=== PATIENT | female | born 1990 | race Caucasian/White ===

== ENCOUNTER 2016-05-27 08:18 | Emergency (ER) | payer SELFPAY ==
[2016-05-27] MEDS ORDERED: CYCLOBENZAPRINE HCL 10 MG TABLET PO ONE (09:20)
[2016-05-27] MEDS ORDERED: KETOROLAC TROMETHAMINE 60 MG/2 ML SDV IM ONE (09:20)
--- NOTE | 2016-05-27 09:24 | ER Document Report ---
HPI - HPI Patient complains to provider of: back pain Pain Level: 3 Context: Patient is a 26-year-old female who presents emergency Department complaining of low back pain and left leg numbness. Patient has a chronic history of low back pain previously treated with a L4-L5 discectomy. Patient states that she usually has back pain that she can manage at home with Motrin. Patient states last night she was working a 12 hour shift at a [employer] center and afterwards she had back pain. States her pain is intermittent with a constant dull ache in her left lower back with radiating pain down into the back of her leg. She denies any injury. Denies any saddle anesthesia, urinary incontinence, stool incontinence Past medical history significant for chronic back pain Does not have a primary care provider Social history 1-[id number], social alcohol use, denies any drug use. Has Flexeril and Motrin at home - CONSTITUTIONAL Constitutional: DENIES: Fever, Chills - EENT EENT: DENIES: Sore Throat, Ear Pain, Nasal Drainage-Clear, Nasal Drainage- Purulent, Congestion, Eye problems - NEURO Neurology: DENIES: Headache, Weakness, Vision blurred, Dizzinesss / Vertigo - CARDIOVASCULAR Cardiovascular: DENIES: Chest pain - RESPIRATORY Respiratory: DENIES: Trouble Breathing, Coughing - GASTROINTESTINAL Gastrointestinal: DENIES: Abdominal Pain, Nausea, Patient vomiting, Diarrhea, Constipation, Black / Bloody Stools - URINARY Urinary: DENIES: Dysuria, Urgency, Frequency - REPRODUCTIVE LMP: 05/20/16 Reproductive: DENIES: :, Postmenopausal, Abnormal bleeding / discharge - MUSCULOSKELETAL Musculoskeletal: REPORTS: Extremity pain - left leg numbness, Back Pain. DENIES : Neck Pain, Swelling - DERM Skin Color: Normal, [place] Skin Problems: None Past Medical History - General Information source: Patient Last Menstrual Period: 05/20/16 - Social History Smoking Status: Current Every Day Smoker Cigarette use (# per day): Yes - 1/2 pk Chew tobacco use (# tins/day): Yes Smoking Education Provided: Yes - Smoking cessation education-4 minutes Frequency of alcohol use: None Drug Abuse: None Family History: Arthritis, CVA, DM, Hyperlipidemia, Hypertension, Malignancy Patient has suicidal ideation: No Patient has homicidal ideation: No Renal/ Medical History: Reports: Hx Ovarian Cysts. Denies: Hx Peritoneal Dialysis Musculoskeltal Medical History: Reports Hx Arthritis, Reports Hx Musculoskeletal Deformity, Reports Hx Musculoskeletal Trauma Past Surgical History: Reports: Hx Orthopedic Surgery - back L4& L5 - Immunizations Immunizations up to date: Yes Hx Diphtheria, Pertussis, Tetanus Vaccination: Yes Vertical Provider Document - CONSTITUTIONAL Agree With Documented VS: Yes Exam Limitations: No Limitations General Appearance: WD/WN, Mild Distress - INFECTION CONTROL TRAVEL OUTSIDE OF THE [place] IN LAST 30 DAYS: No - HEENT HEENT: Atraumatic, Normocephalic - NECK Neck: Normal Inspection, Other - nontender to palpation, Full ROM - RESPIRATORY Respiratory: Breath Sounds Normal, No Respiratory Distress, Chest Non-Tender O2 Sat by Pulse Oximetry: 96 - CARDIOVASCULAR Cardiovascular: Regular Rate, Regular Rhythm, No Murmur Pulses: Normal: Radial, Dorsalis pedis - BACK Back: Normal Inspection - with a 2-3 cm vertical incision consistent with surgical history Notes: tenderness to palpation of the left lumbar paraspinous muscles that are tense to palp - MUSCULOSKELETAL/EXTREMETIES Musculoskeletal/Extremeties: MAEW - but guarding of left LE, FROM, Non-Tender, No Edema. negative: Eccymosis - NEURO Level of Consciousness: Awake, Alert, Appropriate Motor/Sensory: No Motor Deficit, No Sensory Deficit - DERM Integumentary: Warm, Dry, No Rash Course - Re-evaluation Re-evalutation: 05/27/16 10:49 Patient is a 26 old female who is hemodynamically stable, no acute distress, afebrile who is complaining of a flareup of her chronic back pain. Patient was given dose of Flexeril and Toradol to which she stayed improved her symptoms and she now feels that she is comfortable walking. Patient will be discharged home with by mouth Motrin and Flexeril can follow-up with her neurosurgeon. - Vital Signs Vital signs: Temp Pulse Resp BP Pulse Ox 98.4 F 77 16 115/62 96 05/27/16 08:38 05/27/16 08:38 05/27/16 08:38 05/27/16 08:38 05/27/16 08:38 Discharge - Discharge Clinical Impression: Encounter for smoking cessation counseling Back pain Qualifiers: Back pain location: low back pain Chronicity: chronic Back pain laterality: left Sciatica presence: with sciatica Sciatica laterality: sciatica of left side Qualified Code(s): M54.42 - Lumbago with sciatica, left side Condition: Good Disposition: HOME, SELF-CARE Instructions: Ice Packs ([facility]), Low Back Pain ([facility]), Muscle Strain ([facility]), Pain Medication Injection ([facility]), Warm Packs ([facility]), Stretching Exercises for the Back ([facility]) Prescriptions: Cyclobenzaprine HCl [Flexeril 10 mg Tablet] 10 mg PO TIDP PRN #15 tab PRN Reason: Ibuprofen [Motrin 800 mg Tablet] 800 mg PO Q8H PRN #30 tab PRN Reason: Forms: Return to School, Return to Work, Smoking Cessation Education
[2016-05-27 11:05] VITALS: BP 109/57
== END 2016-05-27 10:59 | disposition home or self-care (01) ==
LOC: ER 08:18
DX: M54.42 Lumbago with sciatica, left side (principal); F17.210 Nicotine dependence, cigarettes, uncomplicated
CPT/HCPCS: 99283; 96372; J1885

== ENCOUNTER 2016-06-30 11:48 | Emergency (ER) | payer SELFPAY ==
--- NOTE | 2016-06-30 12:15 | ER Document Report ---
ED Medical Screen (RME) - General Stated Complaint: POSSIBLE PANIC ATTACK Notes: 26 yo female c/o possible panic attack. reports that while at work left arm "got stuck", left facial twitching. pt began to hyperventilate so work called 911. presentlyu pt in NAD. VSS. left shoulder soreness. admits to alot of personal stress TRAVEL OUTSIDE OF THE [place] IN LAST 30 DAYS: No - Related Data Allergies/Adverse Reactions: No Known Allergies Allergy (Verified 06/30/16 12:12) Past Medical History Renal/ Medical History: Reports: Hx Ovarian Cysts. Denies: Hx Peritoneal Dialysis Musculoskeltal Medical History: Reports Hx Arthritis, Reports Hx Musculoskeletal Deformity, Reports Hx Musculoskeletal Trauma Past Surgical History: Reports: Hx Orthopedic Surgery - back L4& L5 - Immunizations Immunizations up to date: Yes Hx Diphtheria, Pertussis, Tetanus Vaccination: Yes
--- NOTE | 2016-06-30 15:57 | ER Document Report ---
ED Psych Disorder / Suicide - General Mode of Arrival: Ambulatory Information source: Patient TRAVEL OUTSIDE OF THE [place] IN LAST 30 DAYS: No - HPI Patient complains to provider of: Other - "panic attack" Onset: This morning Associated symptoms: Other - see above - General Chief Complaint: Anxiety Stated Complaint: POSSIBLE PANIC ATTACK Notes: 26 year old female presents to the ED via EMS complaining of having left sided face tightening, tingling to the bilateral finger tips, lips, and bilateral feet. Patient was told by a talent associate that she was having a panic attack. Patient additionally states that she noticed her legs shaking, difficulty moving her right hand, and her co-workers noted that she had purple lips. Patient reports feeling like if she is "going to ." Patient reports that she has "a lot of stuff going on" and that she has had panic attack-like symptoms before but never like this. She reports that she has felt her heart "drop" in her chest, but never the symptoms that she is reporting today. Patient does not have a primary care provider. Patient denies being on any medication for panic attacks. (DONNA ROTHMAN) - Related Data Allergies/Adverse Reactions: No Known Allergies Allergy (Verified 06/30/16 12:12) Home Medications: Current Home Medications Cyclobenzaprine HCl [Flexeril 10 mg Tablet] 10 mg PO TIDP PRN 06/30/16 [History] Past Medical History - General Information source: Patient - Social History Smoking Status: Current Every Day Smoker Chew tobacco use (# tins/day): No Frequency of alcohol use: None Drug Abuse: None Family History: Arthritis, CVA, DM, Hyperlipidemia, Hypertension, Malignancy Patient has suicidal ideation: No Patient has homicidal ideation: No Renal/ Medical History: Reports: Hx Ovarian Cysts. Denies: Hx Peritoneal Dialysis Musculoskeltal Medical History: Reports Hx Arthritis, Reports Hx Musculoskeletal Deformity, Reports Hx Musculoskeletal Trauma Past Surgical History: Reports: Hx Orthopedic Surgery - back L4& L5 - Immunizations Immunizations up to date: Yes Hx Diphtheria, Pertussis, Tetanus Vaccination: Yes Review of Systems - Review of Systems Constitutional: No symptoms reported EENT: See HPI, Other - "purple lips" Cardiovascular: No symptoms reported Respiratory: No symptoms reported Gastrointestinal: No symptoms reported Genitourinary: No symptoms reported Female Genitourinary: No symptoms reported Musculoskeletal: See HPI, Other - difficulty moving right arm Skin: No symptoms reported Hematologic/Lymphatic: No symptoms reported Neurological/Psychological: See HPI, Anxiety, Tingling - bilateral fingertips, feet, and lips -: Yes All other systems reviewed and negative Physical Exam - Vital signs Interpretation: Normal - General General appearance: Alert In distress: None - HEENT Head: Normocephalic, Atraumatic Eyes: Normal Extraocular movements intact: Yes Pupils: PERRL - Respiratory Respiratory status: No respiratory distress Breath sounds: Normal - Cardiovascular Rhythm: Regular Heart sounds: Normal auscultation - Abdominal Inspection: Normal - Back Back: Normal - Extremities General upper extremity: Normal inspection, Normal ROM General lower extremity: Normal inspection, Normal ROM - Neurological Neuro grossly intact: Yes Cognition: Normal Orientation: AAOx4 Jose Coma Scale Eye Opening: Spontaneous Jose Coma Scale Verbal: Oriented [place] Coma Scale Motor: Obeys Commands [place] Coma Scale Total: 15 Speech: Normal - Psychological Associated symptoms: Normal affect, Normal mood - Skin Skin Temperature: Warm Skin Moisture: Dry Skin Color: Normal - Vital signs Vitals: Pulse Resp BP Pulse Ox 74 14 110/60 100 06/30/16 16:15 06/30/16 16:15 06/30/16 16:15 06/30/16 16:15 Pulse Resp BP Pulse Ox 74 14 110/60 100 06/30/16 16:15 06/30/16 16:15 06/30/16 16:15 06/30/16 16:15 (DONNA ROTHMAN) Course - Re-evaluation Re-evalutation: 06/30/16 15:58 I personally performed the services described in the documentation, reviewed and edited the documentation which was dictated to my scribe in my presence, and it accurately records my words and actions. Patient presents the emergency department. She was at work became upset started breathing fast gut tingling around her lips and her finger spelled overwhelmed showed and crying uncontrollably. She says happened to her couple times in the past she's never sought treatment for. She is not suicidal homicidal she is completely calm on examination with no current complaints. Says been a lot of things with her life recently that she's been having trouble prioritizing. She has any headache blurred vision double vision chest pain shortness breath no strokelike symptoms. A long discussion about prioritizing unloading all the pressure and focusing on trying to achieve 1 stressor at a time and prioritize which stressors the most important to her. She is very comfortable with this conversation does not want to start on medication she doesn't have to give her the clinic for follow-up and discuss reasons for ED return sooner (JEREMIAS JOHN) - Vital Signs Vital signs: Temp Pulse Resp BP Pulse Ox 74 14 110/60 100 06/30/16 16:15 06/30/16 16:15 06/30/16 16:15 06/30/16 16:15 Discharge - Discharge Clinical Impression: Anxiety Condition: Stable Disposition: HOME, SELF-CARE Instructions: Anxiety ([facility]) Additional Instructions: Anxiety The physician feels that some of your health problems are being caused by anxiety. Anxiety affects your health in many ways. Anxiety alone can cause palpitations, sweats, chest pains, abdominal pains, shortness of breath, and headaches. It contributes to ulcer disease, high blood pressure, irritable bowel syndrome, and has been shown to cause flare-ups of many other diseases. Anxiety is not a simple disorder to treat. If the anxiety is due to recent life stresses, you may simply need time to "work through" the changes. If the anxiety is due to an underlying unhappiness with yourself or due to psychiatric disturbance, professional help will be needed. Your physician can refer you for further help if needed. Anti-anxiety medication is occasionally given if the stress is acute or if you are having trouble sleeping. Chronic or frequent use of these medications is not a good idea because the body becomes reliant on it, preventing you from dealing with life's normal stresses. Forms: Return to School, Return to Work Referrals: [facility] [Provider Group] - Follow up in 3-5 days (Call the office in the morning to schedule follow-up appointment in 2-3 days return for increasing worsening or new symptoms) Scribe Documentation - Scribe Written by Nikolas:: Nikolas Herrera, 06/30/2016 [id number] acting as scribe for :: Jonathan
[2016-06-30 17:18] VITALS: BP 110/60
== END 2016-06-30 17:16 | disposition home or self-care (01) ==
LOC: ER 11:48
DX: F41.9 Anxiety disorder, unspecified (principal); Z79.899 Other long term (current) drug therapy; F17.210 Nicotine dependence, cigarettes, uncomplicated
CPT/HCPCS: 99283

== ENCOUNTER 2016-10-13 16:07 | Emergency (ER) | payer SELFPAY ==
[2016-10-13 16:44] VITALS: BP 113/68
--- NOTE | 2016-10-13 17:32 | ER Document Report ---
ED Psych Disorder / Suicide - General Chief Complaint: Anxiety Stated Complaint: DIFFICULTY BREATHING Time Seen by Provider: 10/13/16 17:16 Mode of Arrival: Medic Information source: Patient Notes: 26 yo female with hx/o anxiety, c/o anxiety attack while at work today. started seeing spots, legs felt numb, face and hands felt numb. pt had similar episode about 2 mos ago. treated in ED. pt has recently started seeing therapist at [facility]. prescribed vistaril for anxiety but can not take it while at work because of the sedation. presently pt feeling much better, "just tired". pt denies any SI/HI TRAVEL OUTSIDE OF THE [place] IN LAST 30 DAYS: No - HPI Patient complains to provider of: No: Aggression, Agitated, Homicidal ideation, Suicidal ideation Onset: Just prior to arrival Onset was: Sudden Quality of pain: No pain Pain Level: 4 Situational problems related to: Work Normal mood: Yes Associated symptoms: Normal affect, Normal mood Similar symptoms previously: Yes Recently seen / treated by doctor: Yes - [facility] - Related Data Allergies/Adverse Reactions: No Known Allergies Allergy (Verified 06/30/16 12:12) Past Medical History - General Information source: Patient - Social History Smoking Status: Current Every Day Smoker Cigarette use (# per day): Yes - 5 Smoking Education Provided: Yes Frequency of alcohol use: None Drug Abuse: None Occupation: call center Lives with: Family Family History: Arthritis, CVA, DM, Hyperlipidemia, Hypertension, Malignancy Patient has suicidal ideation: No Patient has homicidal ideation: No Renal/ Medical History: Reports: Hx Ovarian Cysts. Denies: Hx Peritoneal Dialysis Musculoskeltal Medical History: Reports Hx Arthritis, Reports Hx Musculoskeletal Deformity, Reports Hx Musculoskeletal Trauma Past Surgical History: Reports: Hx Orthopedic Surgery - back L4& L5 - Immunizations Immunizations up to date: Yes Hx Diphtheria, Pertussis, Tetanus Vaccination: Yes Review of Systems - Review of Systems Constitutional: No symptoms reported EENT: No symptoms reported Cardiovascular: No symptoms reported Respiratory: No symptoms reported Gastrointestinal: No symptoms reported Genitourinary: No symptoms reported Female Genitourinary: No symptoms reported Musculoskeletal: No symptoms reported Skin: No symptoms reported Hematologic/Lymphatic: No symptoms reported Neurological/Psychological: No symptoms reported Physical Exam - Vital signs Vitals: Temp Pulse Resp BP Pulse Ox 98.1 F 65 18 113/68 95 10/13/16 16:42 10/13/16 16:42 10/13/16 16:42 10/13/16 16:42 10/13/16 16:42 Interpretation: Normal - General General appearance: Appears well, Alert - HEENT Head: Normocephalic, Atraumatic Eyes: Normal Pupils: PERRL - Respiratory Respiratory status: No respiratory distress Chest status: Nontender Breath sounds: Normal Chest palpation: Normal - Cardiovascular Rhythm: Regular Heart sounds: Normal auscultation Murmur: No - Abdominal Inspection: Normal Distension: No distension Bowel sounds: Normal Tenderness: Nontender Organomegaly: No organomegaly - Back Back: Normal, Nontender - Extremities General upper extremity: Normal inspection, Nontender, Normal color, Normal ROM , Normal temperature General lower extremity: Normal inspection, Nontender, Normal color, Normal ROM , Normal temperature, Normal weight bearing. No: Trina's sign - Neurological Neuro grossly intact: Yes Cognition: Normal Orientation: AAOx4 Jose Coma Scale Eye Opening: Spontaneous Jose Coma Scale Verbal: Oriented [place] Coma Scale Motor: Obeys Commands Jose Coma Scale Total: 15 Speech: Normal Motor strength normal: LUE, RUE, LLE, RLE Sensory: Normal - Psychological Associated symptoms: Normal affect, Normal mood - Skin Skin Temperature: Warm Skin Moisture: Dry Skin Color: Normal Course - Re-evaluation Re-evalutation: 10/13/16 17:31 pt A&O x 3, denies SI/HI, no risk to self or others. pt stable for discharge - Vital Signs Vital signs: Temp Pulse Resp BP Pulse Ox 98.1 F 65 18 113/68 95 10/13/16 16:42 10/13/16 16:42 10/13/16 16:42 10/13/16 16:42 10/13/16 16:42 Discharge - Discharge Clinical Impression: Anxiety Condition: Stable Disposition: HOME, SELF-CARE Instructions: Anxiety ([facility]) Additional Instructions: continue current meds as prescribed follow up with [facility] as scheduled return to ER for any worsening Forms: Return to Work
== END 2016-10-13 17:35 | disposition home or self-care (01) ==
LOC: ER 16:07
DX: R41.9 Unspecified symptoms and signs involving cognitive functions and awareness (principal); Z79.899 Other long term (current) drug therapy; F17.210 Nicotine dependence, cigarettes, uncomplicated; Z71.6 Tobacco abuse counseling
CPT/HCPCS: 99283

== ENCOUNTER 2016-11-12 14:40 | Emergency (ER) | payer SELFPAY ==
--- NOTE | 2016-11-12 15:35 | ER Document Report ---
ED Medical Screen (RME) - General Mode of Arrival: Ambulatory Information source: Patient TRAVEL OUTSIDE OF THE [place] IN LAST 30 DAYS: No <ANDREW PLEITEZ - Last Filed: 11/12/16 15:33> <COREY DURHAM - Last Filed: 11/12/16 17:50> - General Chief Complaint: Abdominal Pain Stated Complaint: LOWER ABDOMINAL PAIN Time Seen by Provider: 11/12/16 15:32 Notes: 26 year old female with left flank and LLQ tenderness. RePorts pain after voiding. She has a history of ovarian cysts and chronic back pain (history of microdissection) Patient denies fever. She denies vaginal discharge. (ANDREW PLEITEZ) - Related Data Allergies/Adverse Reactions: No Known Allergies Allergy (Verified 11/12/16 14:44) Past Medical History - Social History Frequency of alcohol use: None Drug Abuse: None Renal/ Medical History: Reports: Hx Ovarian Cysts. Denies: Hx Peritoneal Dialysis Musculoskeltal Medical History: Reports Hx Arthritis, Reports Hx Musculoskeletal Deformity, Reports Hx Musculoskeletal Trauma Past Surgical History: Reports: Hx Orthopedic Surgery - back L4& L5 - Immunizations Immunizations up to date: Yes Hx Diphtheria, Pertussis, Tetanus Vaccination: Yes <ANDREW PLEITEZ - Last Filed: 11/12/16 15:33> Course - Laboratory Result Diagrams: 11/12/16 16:00 11/12/16 16:00 <COREY DURHAM - Last Filed: 11/12/16 17:50> - Vital Signs Vital signs: Temp Pulse Resp BP Pulse Ox 98.5 F 75 12 140/75 H 97 11/12/16 14:45 11/12/16 14:45 11/12/16 14:45 11/12/16 14:45 11/12/16 14:45 - Laboratory Laboratory results interpreted by me: 11/12/16 11/12/16 11/12/16 16:00 16:00 16:00 WBC 11.8 H Absolute Neutrophils 8.9 H AST 43 H ALT 90 H Urine Blood SMALL H Ur Leukocyte Esterase MODERATE H Doctor's Discharge <ANDREW PLEITEZ - Last Filed: 11/12/16 15:33> <COREY DURHAM - Last Filed: 11/12/16 17:50> - Discharge Prescriptions: Ondansetron [Zofran Odt 4 mg Tablet] 1 tab PO Q6HP PRN #15 tab.rapdis PRN Reason: For Nausea/Vomiting Cephalexin Monohydrate [Keflex 500 mg Capsule] 500 mg PO QID #40 capsule
[2016-11-12 16:12] LABS: ABSOLUTE EOSINOPHILS # (AUTO) 0.2 10^3/uL (0.0-0.6); ABSOLUTE LYMPHOCYTES (AUTO) 1.8 10^3/uL (0.5-4.7); ABSOLUTE MONOCYTES (AUTO) 0.8 10^3/uL (0.1-1.4); ABSOLUTE NEUT (AUTO) 8.9 10^3/uL (1.7-8.2); BASOPHILS % (AUTO) 0.3 % (0-2); HEMATOCRIT 43.8 % (36.0-47.0); HEMOGLOBIN 14.2 g/dL (12.0-15.5); HGB HCT DIFFERENCE -1.2; LYMPHOCYTES % (AUTO) 15.5 % (13-45); MEAN CORPUSCULAR HGB CONC 32.4 g/dL (32.0-36.0); MEAN CORPUSCULAR VOLUME 90 fl (80-97); RED BLOOD COUNT 4.88 10^6/uL (3.72-5.28); RED CELL DISTRIBUTION WIDTH 13.6 % (11.5-14.0); SEGMENTED NEUTROPHILS % (AUTO) 75.2 % (42-78); WHITE BLOOD COUNT 11.8 10^3/uL (4.0-10.5)
[2016-11-12 16:27] LABS: APPEARANCE,URINE SLIGHTLY-CLOUDY; BILIRUBIN,URINE NEGATIVE (NEGATIVE); GLUCOSE, URINE NEGATIVE (NEGATIVE); KETONES,URINE NEGATIVE (NEGATIVE); LEUKOCYTE ESTERASE,URINE MODERATE (NEGATIVE); NITRITE,URINE NEGATIVE (NEGATIVE); PROTEIN,URINE NEGATIVE (NEGATIVE); URINE SPECIFIC GRAVITY 1.011; UROBILINOGEN,URINE NEGATIVE mg/dL (<2.0)
[2016-11-12 16:32] LABS: ALANINE AMINOTRANSFERASE 90 U/L (9-52); ALBUMIN 4.7 g/dL (3.5-5.0); ALKALINE PHOSPHATASE 71 U/L (38-126); ANION GAP 13 (5-19); ASPARTATE AMINO TRANSFERASE 43 U/L (14-36); BILIRUBIN,DIRECT 0.3 mg/dL (0.0-0.4); BILIRUBIN,TOTAL 0.8 mg/dL (0.2-1.3); BLOOD UREA NITROGEN 12 mg/dL (7-20); CALCIUM 10.2 mg/dL (8.4-10.2); CARBON DIOXIDE 22 mmol/L (22-30); CHLORIDE 106 mmol/L (98-107); GLUCOSE 82 mg/dL (75-110); POTASSIUM 4.4 mmol/L (3.6-5.0); SODIUM 140.5 mmol/L (137-145)
[2016-11-12] MEDS ORDERED: LIDOCAINE 1% INJ-PF (10 MG/ML) 30 ML SDV INJ ONE (17:19)
[2016-11-12] MEDS ORDERED: CEFTRIAXONE INJ 250 MG VIAL IM ONE (17:19)
[2016-11-12] MEDS ORDERED: ONDANSETRON 4 MG TAB.RAPDIS PO ONE (17:23)
--- NOTE | 2016-11-12 17:50 | ER Document Report ---
ED GI/ - General Mode of Arrival: Ambulatory Information source: Patient TRAVEL OUTSIDE OF THE [place] IN LAST 30 DAYS: No <DUC FISHMAN - Last Filed: 11/12/16 20:21> <COREY DURHAM - Last Filed: 11/12/16 21:42> - General Chief Complaint: Abdominal Pain Stated Complaint: LOWER ABDOMINAL PAIN Time Seen by Provider: 11/12/16 15:32 Notes: Patient is a 26-year old female presenting to the emergency department for left lower quadrant pain and dysuria. Patient states her pain has been sharp and was onset gradually starting early Tuesday morning. Patient states she has pain in her lower abdomen/pelvic region after she urinates; this pain lasts for about 5-10 seconds. Patient also has some nausea. Patient has some constant back pain and states she has pain in her back but is unsure if it is her chronic pain or new pain. Patient denies any history of kidney stones or a UTI. Patient smokes and has had a micro discectomy. Patient has no known drug allergies. (DUC FISHMAN) - Related Data Allergies/Adverse Reactions: No Known Allergies Allergy (Verified 11/12/16 14:44) Past Medical History - General Information source: Patient - Social History Smoking Status: Current Every Day Smoker Frequency of alcohol use: None Drug Abuse: None Family History: Arthritis, CVA, DM, Hyperlipidemia, Hypertension, Malignancy Patient has suicidal ideation: No Patient has homicidal ideation: No Renal/ Medical History: Reports: Hx Ovarian Cysts Musculoskeltal Medical History: Reports Hx Arthritis, Reports Hx Musculoskeletal Deformity, Reports Hx Musculoskeletal Trauma Past Surgical History: Reports: Hx Orthopedic Surgery - micro discectomy L4& L5 - Immunizations Immunizations up to date: Yes Hx Diphtheria, Pertussis, Tetanus Vaccination: Yes <DUC FISHMAN - Last Filed: 11/12/16 20:21> Review of Systems - Review of Systems Constitutional: No symptoms reported EENT: No symptoms reported Cardiovascular: No symptoms reported Respiratory: No symptoms reported Gastrointestinal: See HPI, Abdominal pain, Nausea Genitourinary: See HPI, Dysuria Female Genitourinary: No symptoms reported Musculoskeletal: See HPI, Back pain Skin: No symptoms reported Hematologic/Lymphatic: No symptoms reported Neurological/Psychological: No symptoms reported -: Yes All other systems reviewed and negative <DUC FISHMAN - Last Filed: 11/12/16 20:21> Physical Exam - Vital signs Interpretation: Normal <[email or web address] - Last Filed: 11/12/16 20:21> <COREY DURHAM - Last Filed: 11/12/16 21:42> - Vital signs Vitals: Temp Pulse Resp BP Pulse Ox 98.5 F 75 12 140/75 H 97 11/12/16 14:45 11/12/16 14:45 11/12/16 14:45 11/12/16 14:45 11/12/16 14:45 - Notes Notes: GENERAL: Alert, interacts well. Mild distress. HEAD: Normocephalic, atraumatic. EYES: Appear normal. Pupils equal, round, and reactive to light. ENT: Dry mucus membranes, tongue midline. [Nares patent, no nasal septal hematoma, TM's intacts.] NECK: Full range of motion. Supple. Trachea midline. LUNGS: Clear to auscultation bilaterally, no wheezes, rales, or rhonchi. No respiratory distress. HEART: Regular rate and rhythm. No murmurs, gallops, or rubs. ABDOMEN: Soft, LLQ tenderness to palpation. Non-distended. Normal bowel sounds. BACK: Left CVA tenderness to palpation. EXTREMITIES: Moves all 4 extremities spontaneously. Normal strength. No edema. NEUROLOGICAL: Alert and oriented x3. Normal speech. No focal neurological deficits. GSC 15. PSYCH: Normal affect, normal mood. SKIN: Warm, dry, normal turgor. No rashes or lesions noted. (DUC FISHMAN) Course - Laboratory Result Diagrams: 11/12/16 16:00 11/12/16 16:00 <DUC FISHMAN - Last Filed: 11/12/16 20:21> - Laboratory Result Diagrams: 11/12/16 16:00 11/12/16 16:00 <COREY DURHAM - Last Filed: 11/12/16 21:42> - Re-evaluation Re-evalutation: 11/12/16 Patient with urinary tract infection and probable early pyelonephritis. Patient has not wanted anything for pain here but she did want nausea medicine. Patient has been given a dose of Rocephin she will be discharged home with Keflex. Return if any worsening or concerning symptoms such as pain, vomiting, fever, or other concerns. Understands agrees with plan. Of note, gonorrhea and Chlamydia were negative. Stable for discharge. (COREY DURHAM) - Vital Signs Vital signs: Temp Pulse Resp BP Pulse Ox 98.5 F 70 16 135/72 H 99 11/12/16 18:14 11/12/16 18:14 11/12/16 18:14 11/12/16 18:14 11/12/16 18:14 - Laboratory Laboratory results interpreted by me: 11/12/16 11/12/16 11/12/16 16:00 16:00 16:00 WBC 11.8 H Absolute Neutrophils 8.9 H AST 43 H ALT 90 H Urine Blood SMALL H Ur Leukocyte Esterase MODERATE H Discharge <DUC FISHMAN - Last Filed: 11/12/16 20:21> <COREY DURHAM - Last Filed: 11/12/16 21:42> - Discharge Clinical Impression: Pyelonephritis Condition: Good Disposition: HOME, SELF-CARE Instructions: Urinary Tract Infection ([facility]), Pyelonephritis ([facility]) Prescriptions: Ondansetron [Zofran Odt 4 mg Tablet] 1 tab PO Q6HP PRN #15 tab.rapdis PRN Reason: For Nausea/Vomiting Cephalexin Monohydrate [Keflex 500 mg Capsule] 500 mg PO QID #40 capsule Cephalexin Monohydrate [Keflex 500 mg Capsule] 500 mg PO QID #40 capsule Cephalexin Monohydrate [Keflex 500 mg Capsule] 500 mg PO QID #40 capsule Scribe Attestation: 11/12/16 21:41 I personally performed the services described in the documentation, reviewed and edited the documentation which was dictated to the scribe in my presence, and it accurately records my words and actions. (COREY DURHAM) Scribe Documentation - Scribe Written by Nikolas:: Nikolas Gibbs, 11/12/2016 18:21 acting as scribe for :: Celeste <DUC FISHMAN - Last Filed: 11/12/16 20:21>
[2016-11-12 18:15] VITALS: BP 135/72
[2016-11-12 18:34] LABS: CHLAM PCR NOT DETECTED (NOT DETECT)
== END 2016-11-12 18:15 | disposition home or self-care (01) ==
LOC: ER 14:40
DX: N12 Tubulo-interstitial nephritis, not specified as acute or chronic (principal); R10.30 Lower abdominal pain, unspecified; R11.0 Nausea; F17.200 Nicotine dependence, unspecified, uncomplicated
CPT/HCPCS: 99284; 96372; 36415; 84702; 85025; 80053; 81001; 87491; 87591; S0119; J0696

== ENCOUNTER 2016-12-11 13:16 | Emergency (ER) | payer SELFPAY ==
--- NOTE | 2016-12-11 14:02 | ER Document Report ---
ED General - General Chief Complaint: Abdominal Pain Stated Complaint: ABDOMINAL PAIN Time Seen by Provider: 12/11/16 13:25 Mode of Arrival: Ambulatory Information source: Patient Notes: 26 yr old female presents with complaints of RUQ abd pain of 4 day duration. pt denies any fevers or chills. admits to nausea. TRAVEL OUTSIDE OF THE [place] IN LAST 30 DAYS: No - HPI Onset: Last week Onset/Duration: Persistent Quality of pain: Achy Severity: Mild Pain Level: 1 Associated symptoms: Nausea, Vomiting Exacerbated by: Denies Relieved by: Denies Similar symptoms previously: Yes Recently seen / treated by doctor: Yes - Related Data Allergies/Adverse Reactions: No Known Allergies Allergy (Verified 12/11/16 13:53) Past Medical History - Social History Smoking Status: Current Some Day Smoker Cigarette use (# per day): Yes Chew tobacco use (# tins/day): No Smoking Education Provided: No Frequency of alcohol use: Rare Drug Abuse: None Family History: Arthritis, CVA, DM, Hyperlipidemia, Hypertension, Malignancy Patient has suicidal ideation: No Patient has homicidal ideation: No Renal/ Medical History: Reports: Hx Ovarian Cysts. Denies: Hx Peritoneal Dialysis Musculoskeltal Medical History: Reports Hx Arthritis, Reports Hx Musculoskeletal Deformity, Reports Hx Musculoskeletal Trauma Past Surgical History: Reports: Hx Orthopedic Surgery - micro discectomy L4& L5 - Immunizations Immunizations up to date: Yes Hx Diphtheria, Pertussis, Tetanus Vaccination: Yes Review of Systems - Review of Systems Notes: REVIEW OF SYSTEMS: CONSTITUTIONAL : Denies fever, chills, or sweats. Denies recent illness. EENT: Denies eye, ear, throat, or mouth pain or symptoms. Denies nasal or sinus congestion or discharge. Denies throat, tongue, or mouth swelling or difficulty swallowing. CARDIOVASCULAR: Denies chest pain. Denies palpitations or racing or irregular heart beat. Denies ankle edema. RESPIRATORY: Denies cough, cold, or chest congestion. Denies shortness of breath, difficulty breathing, or wheezing. GASTROINTESTINAL: Admits abdominal pain nausea GENITOURINARY: Denies difficulty urinating, painful urination, burning, frequency, blood in urine, or discharge. FEMALE GENITOURINARY: Denies vaginal bleeding, heavy or abnormal periods, irregular periods. Denies vaginal discharge or odor. MUSCULOSKELETAL: Denies back or neck pain or stiffness. Denies joint pain or swelling. SKIN: Denies rash, lesions or sores. HEMATOLOGIC : Denies easy bruising or bleeding. LYMPHATIC: Denies swollen, enlarged glands. NEUROLOGICAL: Denies confusion or altered mental status. Denies passing out or loss of consciousness. Denies dizziness or lightheadedness. Denies headache. Denies weakness or paralysis or loss of use of either side. Denies problems with gait or speech. Denies sensory loss, numbness, or tingling. Denies seizures. PSYCHIATRIC: Denies anxiety or stress. Denies depression, suicidal ideation, or homicidal ideation. ALL OTHER SYSTEMS REVIEWED AND NEGATIVE. PHYSICAL EXAMINATION: GENERAL: Well-appearing, well-nourished and in no acute distress. HEAD: Atraumatic, normocephalic. EYES: Pupils equal round and reactive to light, extraocular movements intact, conjunctiva are normal. ENT: Nares patent, oropharynx clear without exudates. Moist mucous membranes. NECK: Normal range of motion, supple without lymphadenopathy LUNGS: Breath sounds clear to auscultation bilaterally and equal. No wheezes rales or rhonchi. HEART: Regular rate and rhythm without murmurs ABDOMEN: Soft, tender in the right upper quadrant no rebound or guarding Female : deferred Musculoskeletal: Normal range of motion, no pitting or edema. No cyanosis. NEUROLOGICAL: Cranial nerves grossly intact. Normal speech, normal gait. Normal sensory, motor exams PSYCH: Normal mood, normal affect. SKIN: Warm, Dry, normal turgor, no rashes or lesions noted. Dictation was performed using [employer] voice recognition software Physical Exam - Vital signs Vitals: Temp Pulse Resp BP Pulse Ox 98.2 F 57 L 16 116/77 99 12/11/16 13:20 12/11/16 13:20 12/11/16 13:20 12/11/16 13:20 12/11/16 13:20 Course - Re-evaluation Re-evalutation: 12/11/16 14:02 Lab work pending at this time ultrasound ordered to rule out cholelithiasis 12/11/16 15:04 Ultrasound lab work noted no significant abnormality patient admits that she has been constipated for the past few days as well which I believe is the actual cause of her pain. Patient will be treated for her constipation is otherwise stable for discharge After performing a Medical Screening Examination, I estimate there is LOW risk for ACUTE APPENDICITIS, BOWEL OBSTRUCTION, ACUTE CHOLECYSTITIS, PERFORATED DIVERTICULITIS, INCARCERATED HERNIA, PANCREATITIS, PELVIC INFLAMMATORY DISEASE, PERFORATED ULCER, ECTOPIC , or TUBO-OVARIAN ABSCESS, thus I consider the discharge disposition reasonable. Also, there is no evidence or peritonitis , sepsis, or toxicity. I have reevaluated this patient multiple times and no significant life threatening changes are noted. The patient and I have discussed the diagnosis and risks, and we agree with discharging home with close follow-up with the understanding that symptoms and presentations can change. We also discussed returning to the Emergency Department immediately if new or worsening symptoms occur. We have discussed the symptoms which are most concerning (e.g., bloody stool, fever, changing or worsening pain, vomiting) that necessitate immediate return. - Vital Signs Vital signs: Temp Pulse Resp BP Pulse Ox 98.2 F 57 L 16 116/77 99 12/11/16 13:20 12/11/16 13:20 12/11/16 13:20 12/11/16 13:20 12/11/16 13:20 - Laboratory Result Diagrams: 12/11/16 13:35 12/11/16 13:35 Laboratory results interpreted by me: 12/11/16 13:35 WBC 10.7 H - Diagnostic Test Radiology reviewed: Image reviewed, Reports reviewed - No acute abnormal Discharge - Discharge Clinical Impression: Constipation Qualifiers: Constipation type: other constipation type Qualified Code(s): K59.09 - Other constipation Abdominal pain Qualifiers: Abdominal location: generalized Qualified Code(s): R10.84 - Generalized abdominal pain Condition: Stable Disposition: HOME, SELF-CARE Instructions: Abdominal Pain ([facility]) Additional Instructions: Follow up with your physician tomorrow for further care or return to the ED IMMEDIATELY if symptoms worsen or new concerns occur. If you cannot afford to follow up with your primary care physician a list of low cost clinics have been provided at the end of your discharge papers as well. Prescriptions: Polyethylene Glycol 3350 [Miralax Powder 17 gm/Packet] 1 packet PO DAILY #7 pkg
[2016-12-11 14:09] LABS: ABSOLUTE EOSINOPHILS # (AUTO) 0.1 10^3/uL (0.0-0.6); ABSOLUTE MONOCYTES (AUTO) 0.7 10^3/uL (0.1-1.4); ABSOLUTE NEUT (AUTO) 7.9 10^3/uL (1.7-8.2); BASOPHILS % (AUTO) 0.2 % (0-2); EOSINOPHILS % (AUTO) 0.9 % (0-6); HEMATOCRIT 39.3 % (36.0-47.0); HEMOGLOBIN 13.4 g/dL (12.0-15.5); HGB HCT DIFFERENCE 0.9; LYMPHOCYTES % (AUTO) 18.6 % (13-45); MEAN CORPUSCULAR HEMOGLOBIN 30.3 pg (27.0-33.4); MEAN CORPUSCULAR HGB CONC 34.1 g/dL (32.0-36.0); MEAN CORPUSCULAR VOLUME 89 fl (80-97); MONOCYTES % (AUTO) 6.6 % (3-13); RED BLOOD COUNT 4.42 10^6/uL (3.72-5.28); RED CELL DISTRIBUTION WIDTH 13.5 % (11.5-14.0); SEGMENTED NEUTROPHILS % (AUTO) 73.7 % (42-78); WHITE BLOOD COUNT 10.7 10^3/uL (4.0-10.5)
[2016-12-11 14:19] LABS: APPEARANCE,URINE SLIGHTLY-CLOUDY; BILIRUBIN,URINE NEGATIVE (NEGATIVE); GLUCOSE, URINE NEGATIVE (NEGATIVE); KETONES,URINE NEGATIVE (NEGATIVE); LEUKOCYTE ESTERASE,URINE NEGATIVE (NEGATIVE); NITRITE,URINE NEGATIVE (NEGATIVE); PROTEIN,URINE NEGATIVE (NEGATIVE); URINE SPECIFIC GRAVITY 1.018; UROBILINOGEN,URINE NEGATIVE mg/dL (<2.0)
[2016-12-11 14:35] LABS: ALANINE AMINOTRANSFERASE 43 U/L (9-52); ALBUMIN 4.5 g/dL (3.5-5.0); ALKALINE PHOSPHATASE 58 U/L (38-126); ANION GAP 10 (5-19); ASPARTATE AMINO TRANSFERASE 21 U/L (14-36); BILIRUBIN,DIRECT 0.2 mg/dL (0.0-0.4); BLOOD UREA NITROGEN 11 mg/dL (7-20); CARBON DIOXIDE 25 mmol/L (22-30); CHLORIDE 104 mmol/L (98-107); CREATININE RESULT 0.69 mg/dL (0.52-1.25); GLUCOSE 86 mg/dL (75-110); LIPASE 60.1 U/L (23-300); POTASSIUM 4.2 mmol/L (3.6-5.0); SODIUM 139.2 mmol/L (137-145); TOTAL PROTEIN 7.3 g/dL (6.3-8.2)
--- NOTE | 2016-12-11 14:42 | RADIOLOGY REPORT (SQ) ---
EXAM DESCRIPTION: U/S ABDOMEN LIMITED W/O DOP COMPLETED DATE/TIME: 12/11/2016 2:25 pm REASON FOR STUDY: RUQ pain COMPARISON: None. TECHNIQUE: Dynamic and static grayscale images acquired of the abdomen and recorded on PACS. Additio nal selected color Doppler and spectral images recorded. LIMITATIONS: None. FINDINGS: PANCREAS: Midline pancreas unremarkable. LIVER: No masses. Echotexture normal. LIVER VASCULATURE: Normal directional flow of the main portal vein and hepatic veins. GALLBLADDER: No stones. Normal wall thickness. No pericholecystic fluid. ULTRASOUND-DETECTED ALMANZAR'S SIGN: Negative. INTRAHEPATIC DUCTS AND COMMON DUCT: CBD and intrahepatic ducts normal caliber. No filling defects. INFERIOR VENA CAVA: Normal flow. AORTA: No aneurysm. RIGHT KIDNEY: Normal size. Normal echogenicity. No solid or suspicious masses. No hydronephrosis. No calcifications. PERITONEAL AND RIGHT PLEURAL SPACE: No ascites or effusions. OTHER: No other significant findings. IMPRESSION: NORMAL RIGHT UPPER QUADRANT ULTRASOUND. TECHNICAL DOCUMENTATION: JOB ID: [id number] [employer]- All Rights Reserved
[2016-12-11 15:36] VITALS: BP 105/58
== END 2016-12-11 15:34 | disposition home or self-care (01) ==
LOC: ER 13:16
DX: K59.09 Other constipation (principal); R10.84 Generalized abdominal pain; R10.11 Right upper quadrant pain; R11.0 Nausea; F17.210 Nicotine dependence, cigarettes, uncomplicated
CPT/HCPCS: 36415; 76705; 80053; 81001; 81025; 83690; 85025; 99284

== ENCOUNTER 2017-09-02 11:58 | Emergency (ER) | payer MEDICAID ==
--- NOTE | 2017-09-02 12:05 | ER Document Report ---
ED General - General Stated Complaint: POSSIBLE OVERDOSE Time Seen by Provider: 09/02/17 12:05 Mode of Arrival: Medic Information source: Patient TRAVEL OUTSIDE OF THE [place] IN LAST 30 DAYS: No - HPI Notes: 27-year-old female presents today via EMS due to taking 400 mg of Latuda and approximately 1100am. Patient states she wanted to sleep because she has been feeling very overwhelmed, states she had no intention of killing herself. Patient is supposed to take Latuda 40 mg twice a day, she stated she thought the Latuda with pressure to sleep for a day. Patient reports he does not have any homicidal ideation not intending to kill herself, that this was an accidental overdose. Patient was given activated charcoal in the EMS and 4 mg of Zofran. Denies any illicit drug use via drinking, snorting, injecting. 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 Her daughter is going to be with her father for the weekend so she states she just wanted to sleep. She does not have a plan to harm herself or anyone else. States she did cut herself when she was 14 and was placed in a psychiatric facility for evaluation. She does see a therapist, her next appointment is September 20. Denies fevers, chills, chest pain, palpitations, shortness of breath, dyspnea, nausea, vomiting, diarrhea, abdominal pain, hematuria,blurred vision, double vision, loss of vision, speech changes, LH, dizziness, syncope, headaches, wheezing, ST, URI, neck pain, weakness, bowel or bladder dysfunction, saddle anesthesia, numbness or tingling in bilateral upper or lower extremities equally, muscle paralysis, weakness in bilateral upper or lower extremities equally or rash. Denies IV drug use. - Related Data Allergies/Adverse Reactions: No Known Allergies Allergy (Verified 08/17/17 08:44) Past Medical History - General Information source: Patient, Emergency Med Personnel - Social History Smoking Status: Never Smoker Family History: Reviewed & Not Pertinent, Arthritis, CVA, DM, Hyperlipidemia, Hypertension, Malignancy Renal/ Medical History: Reports: Hx Ovarian Cysts. Denies: Hx Peritoneal Dialysis, Hx Pelvic Inflammatory Disease Musculoskeltal Medical History: Reports Hx Arthritis, Reports Hx Musculoskeletal Deformity, Reports Hx Musculoskeletal Trauma - Back surgery Past Surgical History: Reports: Hx Orthopedic Surgery - micro discectomy L4& L5 - Immunizations Immunizations up to date: Yes Hx Diphtheria, Pertussis, Tetanus Vaccination: Yes Review of Systems - Review of Systems Constitutional: No symptoms reported EENT: No symptoms reported Cardiovascular: No symptoms reported Respiratory: No symptoms reported Gastrointestinal: No symptoms reported Genitourinary: No symptoms reported Female Genitourinary: No symptoms reported Musculoskeletal: No symptoms reported Skin: No symptoms reported Hematologic/Lymphatic: No symptoms reported Neurological/Psychological: See HPI Physical Exam - Vital signs Vitals: Resp Pulse Ox 15 97 09/02/17 12:05 09/02/17 12:05 - Notes Notes: PHYSICAL EXAMINATION: GENERAL: Well-appearing, well-nourished and in no acute distress. HEAD: Atraumatic, normocephalic. EYES: Pupils equal round and reactive to light, extraocular movements intact, conjunctiva are normal. ENT: Nares patent, oropharynx clear without exudates. Moist mucous membranes. NECK: Normal range of motion, supple without lymphadenopathy LUNGS: Breath sounds clear to auscultation bilaterally and equal. No wheezes rales or rhonchi. HEART: Regular rate and rhythm without murmurs ABDOMEN: Soft, nontender, nondistended abdomen. No guarding, no rebound. No masses appreciated. Female : deferred Musculoskeletal: Normal range of motion, no pitting or edema. No cyanosis. NEUROLOGICAL: Cranial nerves grossly intact. Normal speech, normal gait. Normal sensory, motor exams PSYCH: Normal mood, normal affect. SKIN: Warm, Dry, normal turgor, no rashes or lesions noted. Course - Re-evaluation Re-evalutation: Health department contacted at 1200 regarding ingestion. Patient's case was already opened and she was Arty given activated charcoal. EKG negative for any acute STEMI, heart rate 75. Zofran given and EMS. We will start normal saline IV 1 L. Is to check a Tylenol level 4 hours after ingestion and for her to be released 6 hours after ingestion., Vitals stable and is afebrile. Patient adamantly states that she was not trying to kill herself she just wanted to sleep for a couple of days. Denies any homicidal ideation or suicidal ideation. Patient states when she took the medication, she states she cooled she took too much and realizes that it could cause her to , this is when she called her friend concerned in a panic. Her friend called EMS to have her be brought to the ER. The CBC negative for leukocytosis or anemia, CMP negative for any renal or hepatic dysfunction, electrolytes normal, the patient appears to be dehydrated. Urinalysis without leukocytes and ketones. Acetaminophen level and salicylate level <10. on reevaluation at 4 PM, remains afebrile, vitals stable in no distress. Mental health at bedside to evaluate patient. Hitesh Miner, who is a part of the mental health team, that she was appropriate for discharge and no intent suicidal ideation. Plan of care was developed by mental health for her to follow-up with them. at this time will discharge with return precautions and follow-up recommendations. Verbal discharge instructions given a the bedside and opportunity for questions given. Medication warnings reviewed. Patient is in agreement with this plan and has verbalized understanding of return precautions and the need for primary care follow-up in the next 24-72 hours. After performing a Medical Screening Examination, I estimate there is LOW risk for any life threatening mental health issues. At this time the patient looks extremely well and has not attempted severe self harm. I have reevaluated this patient multiple times and no significant life threatening changes are noted. The patient and I have discussed the diagnosis and risks, and we agree with discharging home with close follow-up with the understanding that symptoms and presentations can change. We also discussed returning to the Emergency Department immediately if new or worsening symptoms occur. We have discussed the symptoms which are most concerning (hallucinations, thoughts or actions of self harm or harm to others) that necessitate immediate return. - Vital Signs Vital signs: Temp Pulse Resp BP Pulse Ox 98.5 F 17 111/71 97 09/02/17 12:17 09/02/17 14:04 09/02/17 14:04 09/02/17 14:04 - Laboratory Result Diagrams: 09/02/17 12:11 09/02/17 12:11 Laboratory results interpreted by me: 09/02/17 09/02/17 09/02/17 12:11 12:11 12:11 Seg Neutrophils % 78.5 H Sodium 146.1 H Chloride 108 H Carbon Dioxide 19 L Glucose 115 H Calcium 10.3 H Urine Ketones Salicylates < 1.0 L Acetaminophen < 10 L 09/02/17 12:30 Seg Neutrophils % Sodium Chloride Carbon Dioxide Glucose Calcium Urine Ketones TRACE H Salicylates Acetaminophen - EKG Interpretation by Me EKG shows normal: Sinus rhythm Rate: Normal Rhythm: NSR - 75 bpm. STEMI. Discharge - Discharge Clinical Impression: Overdose Qualifiers: Encounter type: initial encounter Injury intent: accidental or unintentional Qualified Code(s): T50.901A - Poisoning by unspecified drugs, medicaments and biological substances, accidental (unintentional), initial encounter Depression Qualifiers: Depression Type: unspecified Qualified Code(s): F32.9 - Major depressive disorder, single episode, unspecified Condition: Good Disposition: HOME, SELF-CARE Instructions: Overdose ([facility]), Instructions for Home Care Following a Drug Overdose ([facility]) Additional Instructions: Overdose / Ingestion You have taken more medication than you should have. After your evaluation and care, it is felt that your overdose is not likely to be harmful or of any significant consequences to you and you are being discharged. In the future, you should be careful not to take more medications than what is prescribed for you. Although your overdose does not seem to be of any danger to you at this time, if you develop any unusual or unexpected symptoms after your discharge, you should return to the Emergency Department immediately for re-evaluation. Forms: Return to Work Referrals: TAN SHAIKH MD [Primary Care Provider] - Follow up tomorrow ALAN WILL PSYD [ALLIED HEALTH PROFESSIONAL] - Follow up as needed
[2017-09-02] MEDS ORDERED: NORMAL SALINE 1000 ML 1,000 ML IV ONE (12:23)
[2017-09-02 12:50] LABS: ABSOLUTE LYMPHOCYTES (AUTO) 1.5 10^3/uL (0.5-4.7); ABSOLUTE MONOCYTES (AUTO) 0.5 10^3/uL (0.1-1.4); ABSOLUTE NEUT (AUTO) 7.6 10^3/uL (1.7-8.2); BASOPHILS % (AUTO) 0.3 % (0-2); EOSINOPHILS % (AUTO) 0.5 % (0-6); HEMATOCRIT 40.4 % (36.0-47.0); HEMOGLOBIN 13.7 g/dL (12.0-15.5); LYMPHOCYTES % (AUTO) 15.8 % (13-45); MEAN CORPUSCULAR HEMOGLOBIN 30.8 pg (27.0-33.4); MEAN CORPUSCULAR VOLUME 91 fl (80-97); MONOCYTES % (AUTO) 4.9 % (3-13); PLATELET COUNT 304 10^3/uL (150-450); RED BLOOD COUNT 4.46 10^6/uL (3.72-5.28); RED CELL DISTRIBUTION WIDTH 13.4 % (11.5-14.0); SEGMENTED NEUTROPHILS % (AUTO) 78.5 % (42-78); TOTAL CELLS COUNTED % (AUTO) 100 %; WHITE BLOOD COUNT 9.7 10^3/uL (4.0-10.5)
--- NOTE | 2017-09-02 12:52 | EKG REPORT ---
SEVERITY:- NORMAL ECG - SINUS RHYTHM : Confirmed by: German Santos MD 02-Sep-2017 12:51:47
[2017-09-02 12:54] LABS: ALANINE AMINOTRANSFERASE 40 U/L (9-52); ALBUMIN 4.8 g/dL (3.5-5.0); ALKALINE PHOSPHATASE 55 U/L (38-126); ANION GAP 19 (5-19); ASPARTATE AMINO TRANSFERASE 24 U/L (14-36); BILIRUBIN,DIRECT 0.4 mg/dL (0.0-0.4); BILIRUBIN,TOTAL 0.6 mg/dL (0.2-1.3); BLOOD UREA NITROGEN 10 mg/dL (7-20); CALCIUM 10.3 mg/dL (8.4-10.2); CARBON DIOXIDE 19 mmol/L (22-30); CHLORIDE 108 mmol/L (98-107); GLUCOSE 115 mg/dL (75-110); POTASSIUM 4.4 mmol/L (3.6-5.0); SODIUM 146.1 mmol/L (137-145); TOTAL PROTEIN 7.6 g/dL (6.3-8.2)
[2017-09-02 12:54] LABS: APPEARANCE,URINE SLIGHTLY-CLOUDY; BILIRUBIN,URINE NEGATIVE (NEGATIVE); COLOR,URINE YELLOW; GLUCOSE, URINE NEGATIVE (NEGATIVE); KETONES,URINE TRACE mg/dL (NEGATIVE); LEUKOCYTE ESTERASE,URINE NEGATIVE (NEGATIVE); NITRITE,URINE NEGATIVE (NEGATIVE); PROTEIN,URINE NEGATIVE (NEGATIVE); URINE SPECIFIC GRAVITY 1.023; UROBILINOGEN,URINE NEGATIVE mg/dL (<2.0)
[2017-09-02 12:55] LABS: ALCOHOL < 10 mg/dL (NONE DETECTED); SALICYLATE < 1.0 mg/dL (2.0-20.0)
[2017-09-02 13:06] LABS: URINE AMPHETAMINES SCREEN NEGATIVE; URINE BARBITURATES SCREEN NEGATIVE; URINE BENZODIAZEPINES SCREEN NEGATIVE; URINE COCAINE SCREEN NEGATIVE; URINE MARIJUANA (THC) SCREEN NEGATIVE; URINE METHADONE SCREEN NEGATIVE; URINE PHENCYCLIDINE SCREEN NEGATIVE
--- NOTE | 2017-09-02 15:34 | PSYCHOLOGICAL NOTE ---
Psych Note - Psych Note Psych Note: Reason for consult: Overdose Consent Permissions: Katarina Mejiaonan, friend at bed side per patient's request; Laz, significant other, ; Isi Joel, mother, Patient is a 27-year-old female that presents to [facility] after intentional overdose of Latuda. Patient disclosed that she came to [facility] because she took too much Latuda. She states that she took it in attempt to sleep; "I just wanted to sleep... 24 hours at the most... When he sleepy do not think about your problems." She disclosed that she grabbed the Latuda because in the past and had made her drowsy so thought if she took some more it would make her tired. She continued disclosed that after she took the medication she started Googling the amount and saw that she could possibly from an overdose. She states she called poison control which informed her that she needed to go to the hospital. At which point she called her friend to tell her what was happening and her friend called 911. She disclosed her stressors were "mostly regular life stuff... I lost my job.. Lost my car... My fianc lost his job... And we just had an argument." She reports that she [facility] however she did briefly lose her Medicaid when it was put on hold after child support payments were behind. She states that last week her Medicaid was reenacted and has an appointment on September 20 to see Kathy Espinoza. Patient has 1 previous inpatient psychiatric treatment with [facility]IN[facility] when 12-13 years old for self-harm behavior i.e. cutting. She denies any events of self harm behaviors since. Patient's friend, Nitesh, spoke with clinician privately She disclosed to clinician the patient has been under a lot of stress. She knows that in the past she has made some comments to an ex-boyfriend however she is unaware of any attempts. She continued disclosed that the boyfriend is not at the hospital because he feels that she is doing this for attention after their argument. She is concerned because she does have a friend who a few years ago of suicide and feels that this is a possible cry for help. She disclosed that she had told the patient that she should think about moving in with her mother for a little bit of time (mother and patient live in the same [place] currently). Clinician attempted to contact patient's mother, Isi Joel; left a message. Clinician contacted patient's significant other, Laz. "I love her to , but I think this a ruse." He continued to disclose that had an argument and he did not want to talk. He stated that doing something like this is "not like her , there was no reason..." Clinician discussed with Laz patient's disclosed report of events (ie not intentional self harm) at which point he stated, "that sounds like her...please tell her I am sorry...I will clean the house...she will come home to dinner cooked." He agrees to be part of patient's discharge plan to ensure she does not have access to medications or weapons and follows through with mental health services. Clinician discussed resources packet will be was provided to the patient to assist with contacts to local programs for their economic stressors. No medication recommendations at this time. 311 (F32.9) unspecified depressive disorder Impression\\plan: Patient is cleared from acute psychiatric services. Patient does not meet IVC criteria per [place] GS 120 2C. Patient discloses wanting to go to sleep and remembered her old prescription of Latuda had made her sleepy so took more an attempt to fall asleep. Patient states she started to look up the amount she took which caused her to call poison control inferior that she may have caused her self-harm. Patient has an upcoming appointment with [facility] on September 20. Patient's significant other agrees to be part of patient's discharge plan i.e. no access to medications or weapons and follows through with mental health services. Patient has been provided resource packet for local area programs that assist with economic assistance i.e. food keating and churches. Dr. Kirkpatrick was consulted and the care and management of this patient; attending physician in agreement with recommendations and dispositions.
[2017-09-02 17:06] VITALS: BP 117/64
== END 2017-09-02 17:12 | disposition home or self-care (01) ==
LOC: ER 11:58
DX: T50.992A Poisoning by other drugs, medicaments and biological substances, intentional self-harm, initial encounter (principal); F32.9 Major depressive disorder, single episode, unspecified; Y92.009 Unspecified place in unspecified non-institutional (private) residence as the place of occurrence of the external cause
CPT/HCPCS: 93005; 99285; 96360; 36415; 80307 ×4; 85025; 80053; 81001; 93010; J7030

== ENCOUNTER 2017-09-04 14:45 | Emergency (ER) | payer OTHER, MEDICAID ==
[2017-09-04] MEDS ORDERED: OXYCODONE-ACETAMINOPHEN 5-325 MG TABLET PO ONE (16:25)
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
[2017-09-04] MEDS ORDERED: HYDROCODONE/ACETAMINOPHEN 5-325 MG (6 TAB/ER DISP) PO PRN (18:23)
[2017-09-04 18:38] VITALS: BP 113/74
== END 2017-09-04 18:35 | disposition home or self-care (01) ==
LOC: ER 14:45
DX: M54.5 Low back pain (principal); V87.7XXA Person injured in collision between other specified motor vehicles (traffic), initial encounter; F17.200 Nicotine dependence, unspecified, uncomplicated
CPT/HCPCS: 72110; 81025; 99283

== ENCOUNTER 2019-04-13 08:22 | Emergency (ER) | payer OTHER, MEDICAID ==
[2019-04-13] MEDS ORDERED: OXYCODONE-ACETAMINOPHEN 5-325 MG TABLET PO ONE (10:17)
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
[2019-04-13 11:57] VITALS: BP 120/72
== END 2019-04-13 11:57 | disposition home or self-care (01) ==
LOC: ER 08:22
DX: R68.84 Jaw pain (principal); M54.42 Lumbago with sciatica, left side; F17.200 Nicotine dependence, unspecified, uncomplicated; V89.2XXA Person injured in unspecified motor-vehicle accident, traffic, initial encounter
CPT/HCPCS: 81025; 99283

== ENCOUNTER → 2019-08-10 | Outpatient (CLI) | payer MEDICAID ==
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
== END ==
LOC: RAD 10:41
PROVIDERS: ATTEND Nurse Practitioner Family
DX: R05 Cough (principal)
CPT/HCPCS: 71046

== ENCOUNTER 2020-05-26 11:30 | Emergency (ER) | payer OTHER, BC ==
[2020-05-26 11:42] VITALS: BP 113/76
[2020-05-26] MEDS ORDERED: ACETAMINOPHEN 325 MG TABLET PO ONE (12:17)
[2020-05-26] MEDS ORDERED: ONDANSETRON 4 MG TAB.RAPDIS PO ONE (12:17)
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
== END 2020-05-26 14:19 | disposition home or self-care (01) ==
LOC: ER 11:30
DX: S29.012A Strain of muscle and tendon of back wall of thorax, initial encounter (principal); R51.9 Headache, unspecified; M25.512 Pain in left shoulder; V43.52XA Car driver injured in collision with other type car in traffic accident, initial encounter; F17.200 Nicotine dependence, unspecified, uncomplicated
CPT/HCPCS: 99284; 73030; 70450; S0119

== ENCOUNTER → 2020-05-27 | Outpatient (CLI) | payer BC ==
--- NOTE | 2020-05-27 15:41 | RADIOLOGY REPORT (SQ) ---
EXAM DESCRIPTION: HYSTEROSALPINGOGRAM; HYSTERO CATH/INJECTION IMAGES COMPLETED DATE/TIME: 05/27/2020 3:12 pm REASON FOR STUDY: (N97.9)FEMALE INFERTILITY, UNSPECIFIED N97.9 FEMALE INFERTILITY, UNSPECIFIED COMPARISON: None. PROCEDURE: PRE-PROCEDURE: Procedure was explained to the patient. She was told to expect cramping du ring the procedure, and possible spotting post procedure. PROCEDURE: The cervix was prepped in sterile fashion. Under direct visual inspection, the cervix was cannulated with the hysterosalpingogram catheter and contrast injected. TECHNIQUE: Temporal fluoroscopic images acquired during the procedure stored to PACS. FLUOROSCOPY TIME: 28 seconds 7 images saved to PACS. LIMITATIONS: None. FINDINGS: UTERUS: No identified anomalies. No synechia. RIGHT ADNEXA: Normal size fallopian tube. Free spill of contrast into the peritoneal cavity. LEFT ADNEXA: Normal size fallopian tube. Free spill of contrast into the peritoneal cavity. POST PROCEDURE: The patient tolerated the procedure with no adverse effects. IMPRESSION: NORMAL HYSTEROSALPINGOGRAM. COMMENT: Study performed and interpreted by the radiologist. Quality ID 145: Final reports for procedures using fluoroscopy that document radiation exposure moe esteban, or exposure time and number of fluorographic images (if radiation exposure indices are not avail able) TECHNICAL DOCUMENTATION: JOB ID: [id number] 2010 [employer]- All Rights Reserved Reading location - IP/workstation name: [email or web address]
--- NOTE | 2020-05-27 15:41 | RADIOLOGY REPORT (SQ) ---
EXAM DESCRIPTION: HYSTEROSALPINGOGRAM; HYSTERO CATH/INJECTION IMAGES COMPLETED DATE/TIME: 05/27/2020 3:12 pm REASON FOR STUDY: (N97.9)FEMALE INFERTILITY, UNSPECIFIED N97.9 FEMALE INFERTILITY, UNSPECIFIED COMPARISON: None. PROCEDURE: PRE-PROCEDURE: Procedure was explained to the patient. She was told to expect cramping du ring the procedure, and possible spotting post procedure. PROCEDURE: The cervix was prepped in sterile fashion. Under direct visual inspection, the cervix was cannulated with the hysterosalpingogram catheter and contrast injected. TECHNIQUE: Temporal fluoroscopic images acquired during the procedure stored to PACS. FLUOROSCOPY TIME: 28 seconds 7 images saved to PACS. LIMITATIONS: None. FINDINGS: UTERUS: No identified anomalies. No synechia. RIGHT ADNEXA: Normal size fallopian tube. Free spill of contrast into the peritoneal cavity. LEFT ADNEXA: Normal size fallopian tube. Free spill of contrast into the peritoneal cavity. POST PROCEDURE: The patient tolerated the procedure with no adverse effects. IMPRESSION: NORMAL HYSTEROSALPINGOGRAM. COMMENT: Study performed and interpreted by the radiologist. Quality ID 145: Final reports for procedures using fluoroscopy that document radiation exposure moe esteban, or exposure time and number of fluorographic images (if radiation exposure indices are not avail able) TECHNICAL DOCUMENTATION: JOB ID: [id number] 2010 [employer]- All Rights Reserved Reading location - IP/workstation name: [email or web address]
== END ==
LOC: RAD 14:45
PROVIDERS: ATTEND Obstetrics & Gynecology
DX: N97.9 Female infertility, unspecified (principal)
CPT/HCPCS: 58340; 74740